=== PATIENT | female | born 1995 | race Caucasian/White ===

== ENCOUNTER 2020-08-12 00:33 | Inpatient (IN) ==
[2020-08-12] MEDS ORDERED: LACTATED RINGER'S 1,000 ML IV PRN (03:18)
[2020-08-12] MEDS ORDERED: OXYTOCIN 30 UNITS/500 ML BAG IV PRN ×2 (03:18→15:12)
[2020-08-12 03:46] LABS: Hematocrit (blood only) 37.1 % (37-47); Hemoglobin 12.6 g/dL (12.0-16.0); Mean Corpuscular Hemoglobin 29.6 pg (25-34); Mean Corpuscular Volume 87.1 fL (80-100); Mean Platelet Volume 10.1 fL (7.4-10.4); Platelet Count 206 K/uL (130-400); RDW Coefficient of Variation 13.1 % (11.5-14.5); RDW Standard Deviation 41.9 fL (36.4-46.3); Red Blood Count 4.26 M/uL (4.2-5.4); White Blood Count 13.19 K/uL (4.8-10.8)
--- NOTE | 2020-08-12 07:53 | History & Physical Report ---
Date of Service August 12, 2020 Assessment & Plan (1) Supervision of normal intrauterine in primigravida: 24yo at 39.4 weeks GA. Labor 1. Fetus: Cat 1 2. Labor: Progressing 3. GBS: Negative 4. Vitals: WNL (2) Normal labor: Admission and Anticipated Discharge Date Admission Date: August 12, 2020 History of Present Illness Primary Care Provider: NO PCP 24yo at 39.3 weeks GA. Presents in early labor. Denies VB, LOF. Good FM. uncomplicated to date. OB Labs: Hemoglobin 12.3 g/dL (12.0-16.0) 05/26/20 Hematocrit 36.9 % (37-47) L 05/26/20 Glucose 1 Hour 50 gm Load 119 mg/dl (70-130) 05/26/20 OB Optional Labs: No Data to Display Labs Reviewed: Initial OB Labs (01/17/20) Blood Type & RH B positive Antibody Screen negative HCT/HGB 39.6/13.1 Platelets 283 Pap Test negative (01/21/20) Chlamydia negative Gonorrhea negative Rubella immune RPR non reactive Urine Culture/Screen no growth HBsAg negative HIV non reactive MCV 89 Urine drug screen negative CF negative declined genetic screening. Allergies Allergy/AdvReac Type Severity Reaction Status Date / Time No Known Allergies Allergy Verified 08/10/20 08:52 Home Medications Medication Instructions Recorded Confirmed Type cetirizine 10 mg tablet 10 mg PO DAILY 03/24/20 08/10/20 History prenat.vits,colton,[id number] 1 tab PO DAILY 03/24/20 08/12/20 History Patient History Surgical History (Updated 03/24/20 @ 13:17 by Lucita Walker) S/P wisdom tooth extraction Family History (Updated 03/24/20 @ 09:51 by Lucita Walker) Grandmother (Maternal) Hypertension Cervical cancer Ovarian cancer Grandmother (Paternal) Hypertension Father Stroke Social History (Updated 03/24/20 @ 13:09 by Lucita Walker) Smoking Status: Never smoker Hx Alcohol Use: No Hx Substance Use: No Preferred Language: Turkmen Communication Ability: Effective Beliefs That Will Affect Care: None marital status: marital status details: Erik(27) [phone] Current Living Situation: Spouse Current Living Situation Comment: lives with spouse, 1 dog. current occupational status: employed current occupation: financial project manager Other Information That Helps Us Care for You: No Feels Safe at Home: Yes Safety Concerns: Feels Safe At This Time Physical Exam Constitutional: WD/WN, vitals as above Psychiatric: A+Ox3, euthymic affect Genitourinary: OB Exam Abdomen: + vertex Manual OB Exam: + cervical dilation 4 cm, + cervical effacement 80% and + station -2 OB Exam Monitor Tracing: + external FHT monitor used, + external uterine monitor used, + category I and + normal FHT variability; no early decelerations present, no late decelerations present and no variable decelerations Results & Data ([facility]) Vital Signs (Past 12 Hours) Vital Signs Temp Pulse Resp BP 08/12/20 07:30 36.8 C 22 08/12/20 07:03 105 H 136/62 08/12/20 05:39 102 H 118/66 08/12/20 05:38 36.7 C 20 08/12/20 01:03 36.9 C 98 H 20 134/84 08/12/20 00:50 98 H 134/84 08/12/20 00:49 36.9 C 20 Coding Level of Care Code None Diagnoses Supervision of normal intrauterine in primigravida Z34.00 Normal labor O80; Z37.9
--- NOTE | 2020-08-12 08:24 | Labor Progress Brief Note ---
Date of Service August 12, 2020 Subjective Reason For Note: Routine Evaluation Assessment & Plan (1) Supervision of normal intrauterine in primigravida: 24yo at 39.4 weeks GA. Labor 1. Fetus: Cat 1 2. Labor: Progressing 3. GBS: Negative 4. Vitals: WNL (2) Normal labor: Admission and Anticipated Discharge Date Admission Date: August 12, 2020 Physical Exam Genitourinary: OB Exam Abdomen: + vertex Manual OB Exam: + cervical dilation 6 cm, + cervical effacement 90% and + station -1 OB Exam Monitor Tracing: + external FHT monitor used, + external uterine monitor used, + category I and + normal FHT variability; no early decelerations present, no late decelerations present and no variable decelerations Results & Data ([facility]) Vital Signs (Past 12 Hours) Vital Signs Temp Pulse Resp BP 08/12/20 07:30 36.8 C 18 08/12/20 07:03 105 H 136/62 08/12/20 05:39 102 H 118/66 08/12/20 05:38 36.7 C 20 08/12/20 01:03 36.9 C 98 H 20 134/84 08/12/20 00:50 98 H 134/84 08/12/20 00:49 36.9 C 20 Coding Level of Care Code None Diagnoses Supervision of normal intrauterine in primigravida Z34.00 Normal labor O80; Z37.9
--- NOTE | 2020-08-12 12:42 | Anesthesiology Consultation ---
Date of Service August 12, 2020 Assessment & Plan Chart Review Chart Review: Acceptable Risk for Surgery, Patient NOT seen in Pre Admission Testing and Acceptable Risk for Labor Epidural Consults Requested none ASA ASA2 Proposed Anesthesia Anesthesia Type: Labor Epidural and CSE History Height/Weight Height: 5 ft 2 in Weight: 76.204 kg Allergies Allergy/AdvReac Type Severity Reaction Status Date / Time No Known Allergies Allergy Verified 08/10/20 08:52 Medications Home Medications Medication Instructions Recorded Confirmed Last Taken cetirizine 10 mg tablet 10 mg PO DAILY 03/24/20 08/10/20 08/10/20 22:00 prenat.vits,colton,[id number] 1 tab PO DAILY 03/24/20 08/12/20 08/10/20 22:00 Exercise / Class Metabolic Activity II 4-5 Yardwork/Stairs/Walk up hill Past Family History Family History Grandmother (Maternal) Hypertension Cervical cancer Ovarian cancer Grandmother (Paternal) Hypertension Father Stroke Past Surgical History Surgical History S/P wisdom tooth extraction Past Anesthesia History No Hx of Anesthesia Complications and No Family Hx of Anesthesia Complications History of PONV No Hx of PONV and No Hx of Motion Sickness Social History Smoking Status: Never smoker Hx Alcohol Use: No Hx Substance Use: No Physical Exam Vital Signs Last Vital Signs Temp 37.1 C 08/12/20 11:00 Pulse 93 H 08/12/20 09:26 Resp 22 08/12/20 11:30 BP 134/68 08/12/20 09:26 Testing Laboratory Results 08/12/20 03:33
[2020-08-12] MEDS ORDERED: LIDOCAINE 1% LOCAL 20 ML VIAL ONE (15:00)
[2020-08-12] MEDS ORDERED: BENZOCAINE 20% AER SPR 82.5 GM CAN EXT PRN (15:12)
[2020-08-12] MEDS ORDERED: oxyCODONE/ACETAMINOPHEN 5mg/325mg TAB PO PRN (15:12)
[2020-08-12] MEDS ORDERED: bisacodyL 10 MG SUPP PR PRN (15:12)
[2020-08-12] MEDS ORDERED: DIPHTHERIA/TETANUS/PERTUSSIS 0.5 ML SYR/VIAL IM ONE (15:12)
[2020-08-12] MEDS ORDERED: HYDROCORTISONE ACETATE 25 MG SUPP PR PRN (15:12)
[2020-08-12] MEDS ORDERED: ACETAMINOPHEN 325 MG TAB PO PRN (15:12)
[2020-08-12] MEDS ORDERED: SUPERCREAM 0.870% 15 GM JAR EXT PRN (15:12)
--- NOTE | 2020-08-12 15:32 | Delivery Summary ---
Vaginal Delivery Summary Date of Service August 12, 2020 Patient is a 24-year-old 1 P0 white female who presented at 39-2/7 weeks in active labor. She progressed to full dilation after spontaneously rupturing membranes for clear fluid at about 8 cm dilation. She pushed effectively over intact perineum for delivery of a viable female infant. After the head was delivered the right arm presented and was delivered next. The rest of the then delivered easily and was placed on the mother's abdomen for further attention and drying. After 1 minute the cord was clamped and cut. The infant was vigorous and moving all 4 limbs. The placenta was expressed intact with a three-vessel cord. There were bilateral superficial labial lacerations present that were not bleeding and therefore not repaired. bleeding was controlled with dilute Pitocin. Estimated blood loss was 300 cc. This was an unmedicated . Mother and infant are doing well after delivery. [facility] [place] Delivery Charge Vaginal Delivery Codes: 36344 vaginal delivery with post- care
[2020-08-12] MEDS: IBUPROFEN 600 MG TAB PO PRN ×2 (16:13→21:21)
[2020-08-12] MEDS: DOCUSATE SODIUM 100 MG CAP PO SCH (21:21)
[2020-08-13] MEDS: IBUPROFEN 600 MG TAB PO PRN (05:29)
[2020-08-13 06:18] LABS: Hematocrit (blood only) 34.1 % (37-47); Hemoglobin 11.5 g/dL (12.0-16.0); Mean Corpuscular Hemoglobin 29.3 pg (25-34); Mean Corpuscular Hgb Conc 33.7 g/dL (32-36); Mean Platelet Volume 9.9 fL (7.4-10.4); Platelet Count 186 K/uL (130-400); RDW Coefficient of Variation 13.3 % (11.5-14.5); RDW Standard Deviation 42.2 fL (36.4-46.3); Red Blood Count 3.92 M/uL (4.2-5.4); White Blood Count 17.36 K/uL (4.8-10.8)
[2020-08-13] MEDS: DOCUSATE SODIUM 100 MG CAP PO SCH (07:57)
[2020-08-13] MEDS ORDERED: PRENATAL VITAMIN 1 TAB PO SCH (08:00)
--- NOTE | 2020-08-13 08:09 | Obstetrical Progress Note ---
Date of Service August 13, 2020 Assessment & Plan (1) Encounter for care and examination after delivery: stable course continue current care plan Subjective Ambulation: ambulating normally Voiding: no voiding problems Passing Gas:: Yes Diet Tolerance:: regular diet Lochia:: Moderate Feeding Type:: breast feeding Review of Systems All systems reviewed & are unremarkable except as noted in HPI & below Physical Exam Constitutional WD/WN, vitals as above Psychiatric A+Ox3, euthymic affect Genitourinary OB Exam Abdomen: + fundal height Fundus: + firm and + relation to umbilicus (1 below U) Results & Data ([facility]) Vital Signs (Past 12 Hours) Vital Signs Temp Pulse Pulse Resp BP Pulse Ox 08/13/20 07:35 97.7 F 81 18 121/70 99 08/13/20 03:45 97.7 F 76 18 118/73 99 08/13/20 00:40 98.1 F 91 H 16 118/59 L 98
[2020-08-13] MEDS ORDERED: bisacodyL 5 MG TABEC PO SCH (20:00)
== END 2020-08-13 15:47 | disposition home or self-care (01) | DRG 807 ==
LOC: OPB 00:33 → 4S1 00:37 → 4S2 17:45